=== PATIENT | male | born 1980 | race Asian ===

== ENCOUNTER 2017-08-16 20:52 | Emergency (ER) | payer OTHER ==
[~2017-08-16] VITALS: Ht 162.6 cm; Wt 64.5 kg
[~2017-08-16 20:52] MED LIST: BACTDS PO; CEPH-443 PO; IBUP400T22 PO; PHEN51CR; PREPARATION H S48 EA
[2017-08-16 21:05] VITALS: Ht 162.6 cm; Wt 64.5 kg
--- NOTE | 2017-08-16 23:33 | ERD ---
ER Documentation Chief Complaint Chief Complaint fall off treadmill onto head, 03/12, -dizziness, perrla HPI 37-year-old male presents here to emergency department for complaints of a headache after falling off the treadmill hitting head into the floor. Patient felt lightheaded and dizzy afterwards, denies any dizziness at this time. Patient is complaining of pain throbbing pain, 6/10 scale, not better or worse with anything. Patient denies any nausea or vomiting. Patient did not take any medications to help with symptoms. ROS All systems reviewed and are negative except as per history of present illness. Medications Home Meds Active Scripts Cephalexin* (Keflex*) 500 Mg Capsule, 500 MG PO QID for 5 Days, CAP Prov:ODILIA JOHNSTON DO 06/26/16 Ibuprofen* (Motrin*) 400 Mg Tab, 400 MG PO Q6 for 7 Days, #30 TAB 0 Refills Prov:MJ HUGHES PA-C 06/15/16 Sulfamethoxazole-Trimethoprim* (Bactrim* DS) 800-160 Mg Tab, 1 TAB PO BID for 7 Days, #14 TAB 0 Refills Prov:MJ HUGHES PA-C 06/15/16 Cephalexin* (Keflex*) 500 Mg Capsule, 500 MG PO TID for 7 Days, #21 CAP 0 Refills Prov:MJ HUGHES PA-C 06/15/16 Reported Medications Phenyleph/Pramoxin/Glycr/W.pet (Preparation H Cream) 51 Gm Cream.gm. 07/10/10 Phenylephrine/Shark Liver/Ccb (Preparation H Suppository) 48 Ea Supp.rect 07/10/10 Allergies Allergies: Coded Allergies: No Known Allergy (Unverified , 06/19/16) PMhx/Soc History of Surgery: Yes (R Thigh Abscess I&D) Anesthesia Reaction: No Hx Neurological Disorder: No Hx Respiratory Disorders: No Hx Cardiac Disorders: No Hx Psychiatric Problems: No Hx Miscellaneous Medical Probl: Yes (Hemorrhoids) Hx Alcohol Use: No Hx Substance Use: No Hx Tobacco Use: No Smoking Status: Never smoker FmHx Family History: No coronary disease, No diabetes, No other Physical Exam Vitals Vital Signs Date Time Temp Pulse Resp B/P Pulse Ox O2 Delivery O2 Flow Rate FiO2 08/16/17 21:05 98.2 92 18 132/81 100 Physical Exam GENERAL: The patient is well developed and appropriate for usual state of health, in no apparent distress. CHEST: Clear to auscultation bilaterally. There are no rales, wheezes or rhonchi. HEART: Regular rate and rhythm. No murmurs, clicks, rubs or gallops. No S3 or S4. ABDOMEN: Soft, nontender and nondistended. Good bowel sounds. No rebound or guarding. No gross peritonitis. No gross organomegaly or masses. No Gonzalez sign or McBurney point tenderness. BACK: No midline or flank tenderness. EXTREMITIES: Equal pulses bilaterally. There is no peripheral clubbing, cyanosis or edema. No focal swelling or erythema. Full range of motion. Grossly neurovascularly intact. NEURO: Alert and oriented. Cranial nerves 2-12 intact. Motor strength in all 4 extremities with 5/5 strength. Sensation grossly intact. Normal speech and gait. Negative Romberg sign. Negative pronator drift. SKIN: There is no apparent rash or petechia. The skin is warm and dry. HEMATOLOGIC AND LYMPHATIC: There is no evidence of excessive bruising or lymphedema. No gross cervical, axillary, or inguinal lymphadenopathy. Results 24 hrs PROCEDURE: Noncontrast CT Head. CLINICAL INDICATION: Trauma. TECHNIQUE: Noncontrast CT of the head was obtained. The administered radiation dose was CTDI vol = 45 mGy, DLP = 810 mGy-cm. One or more of the following dose reduction techniques were used: automated exposure control, adjustment of the mA and/or kV according to patient size and/or use of iterative reconstruction technique. DICOM images are available. COMPARISON: No pertinent prior examinations were submitted for comparison. FINDINGS: The ventricles and sulci are within normal limits. There is no acute intracranial hemorrhage or extra-axial fluid collection. There is no mass effect. No midline shift is identified. There is no loss of baer-white differentiation to suggest acute infarction. The orbits are within normal limits. The paranasal sinuses and mastoid air cells are without fluid. No destructive osseous lesion is identified. IMPRESSION: No acute findings. RPTAT: HIKT .Sal Patton MD, MD Date Time Electronically viewed and signed by .Sal Patton MD, MD on 08/17/2017 00:18 .T/ CC: MARIA ANTONIA SAEZ NP Procedures/MDM Medical Decision Making: Patient symptoms was likely is consistent with a scalp contusion. There is low suspicion for neurological emergencies at this time since patients neurologic exam is normal. Patient did not have any altered level consciousness, vomiting, changes in balance or memory after incident. Patients CT scan of the head does not show any neurological emergencies at this time. Patient was given for Tylenol for spub-zi-ergpxeyp pain, tramadol for severe pain, is advised to apply ice in affected area, patient was advised to return to emergency department for any worsening symptoms. Dispostion: Home. Stable Disclaimer: Inadvertent spelling and grammatical errors are likely due to EHR/ dictation software use and do not reflect on the overall quality of patient care. Also, please note that the electronic time recorded on this note does not necessarily reflect the actual time of the patient encounter. Departure Diagnosis: Primary Impression: Scalp contusion Encounter type: initial encounter Qualified Code: S00.03XA - Contusion of scalp, initial encounter Condition: Stable Patient Instructions: Scalp Contusion, No Wake Up Additional Instructions: Patient was given for Tylenol for rtvn-ej-hygivxfi pain, tramadol for severe pain, is advised to apply ice in affected area, patient was advised to return to emergency department for any worsening symptoms. MARIA ANTONIA SAEZ NP Aug 16, 2017 23:33
--- NOTE | 2017-08-17 00:19 | RADRPT ---
PROCEDURE: Noncontrast CT Head. CLINICAL INDICATION: Trauma. TECHNIQUE: Noncontrast CT of the head was obtained. The administered radiation dose was CTDI vol = 45 mGy, DLP = 810 mGy-cm. One or more of the following dose reduction techniques were used: automa darell exposure control, adjustment of the mA and/or kV according to patient size and/or use of iterati ve reconstruction technique. DICOM images are available. COMPARISON: No pertinent prior examinations were submitted for comparison. FINDINGS: The ventricles and sulci are within normal limits. There is no acute intracranial hemorrhage or ext ra-axial fluid collection. There is no mass effect. No midline shift is identified. There is no loss of baer-white differentiation to suggest acute infarction. The orbits are within normal limits. The paranasal sinuses and mastoid air cells are without fluid. No destructive osseous lesion is identified. IMPRESSION: No acute findings. RPTAT: HIKT .Sal Patton MD, MD Date Time Electronically viewed and signed by .Sal Patton MD, on 08/17/2017 00:18 .T/
[2017-08-17] MEDS ORDERED: TRAM50TA2 PO (00:49)
[2017-08-17] MEDS ORDERED: ACET500C5 PO (00:49)
== END 2017-08-17 01:15 | disposition home or self-care (01) ==
LOC: FTE 20:52
DX: S00.03XA Contusion of scalp, initial encounter (principal); W01.198A Fall on same level from slipping, tripping and stumbling with subsequent striking against other object, initial encounter; Y92.9 Unspecified place or not applicable
CPT/HCPCS: 70450